=== PATIENT | male | born 1945 | race Caucasian/White ===

== ENCOUNTER 2016-08-11 11:15 | Inpatient (IN) ==
[2016-08-11] MEDS ORDERED: ACETAMINOPHEN 325 MG TABLET PO PRN (12:38)
[2016-08-11] MEDS ORDERED: ONDANSETRON 4 MG/2 ML VIAL IV PRN (12:38)
[2016-08-11] MEDS ORDERED: ZALEPLON 5 MG CAPSULE PO PRN (12:38)
[2016-08-11] MEDS ORDERED: DOCUSATE SODIUM 100 MG CAPSULE PO PRN (12:38)
[2016-08-11] MEDS ORDERED: MAGNESIUM SULF RIDER 4 GM in PREMIX 1 EACH IV PRN (12:41)
[2016-08-11] MEDS ORDERED: MAGNESIUM SULF RIDER 2 GM in PREMIX 1 EACH IV PRN (12:41)
[2016-08-11] MEDS ORDERED: FLUTICASONE 50 MCG NASAL SPRAY 16 GM BOTTLE BOTH NARES PRN (12:42)
[2016-08-11 13:08] LABS: Basophils # 0.1 10*3/uL (0.0-0.2); Basophils % 0.7 % (0.0-0.8); Eosinophils # 0.1 10*3/uL (0.0-0.87); Eosinophils % 1.9 % (0.00-10.9); Hematocrit 40.4 VOL% (42.0-52.0); Hemoglobin 14.1 GM/DL (14.0-18.0); Immature Granulocytes % 0.4 %; Immature Granulocytes Absolute 0.03 #; Lymphocytes # 1.7 10*3/uL (1.4-4.0); Lymphocytes % 22.9 % (21.2-54.2); Mean Corpuscular HGB Conc 34.9 GM/DL (32-36); Mean Corpuscular Hemoglobin 31 PG (27-34); Mean Corpuscular Volume 88.8 FL (87-102); Mean Platelet Volume 10.2 FL (9.6-12.0); Monocytes # 0.3 10*3/uL (0.11-0.8); Monocytes % 4.5 % (1.7-12.7); Neutrophils # 5.3 10*3/uL (1.4-7.4); Neutrophils % 69.6 % (38.7-73.9); Platelet Count 261 T/CUMM (130-400); Red Blood Count 4.55 MC/CUMM (3.8-5.5); Red Cell Distribution Width 12.6 % (9.3-17.3); White Blood Count 7.6 T/CUMM (4-12)
[2016-08-11 13:20] LABS: INR 1.4; PT Patient Result 15.3 SECS
--- NOTE | 2016-08-11 13:28 | CT Report ---
CT head/brain wo con Indication: Unsteady gait, dizziness Comparison: None Technique: Multiple axial tomographic images of the brain were obtained without the use of intravenous contrast. Findings: Midline structures are nondisplaced. There is no evidence of acute intracranial hemorrhage or hydrocephalus. Patchy periventricular and subcortical hypoattenuation noted which is nonspecific but consistent with chronic microvascular ischemic change. Old bilateral lacunar infarcts. Mild global volume loss present. Atherosclerotic calcifications demonstrated. The visualized paranasal sinuses and bilateral mastoid air cells are essentially clear. IMPRESSION: No acute intracranial abnormality demonstrated. Probable chronic microvascular ischemic change and volume loss. Old lacunar infarcts in bilateral basal ganglia. The CT exam was performed using one or more of the following dose reduction techniques: Automated exposure control, adjustment of the mA and/or kV according to patient size, or use of iterative reconstruction technique. PROCEDURE INTERPRETED AT [facility] DEPARTMENT OF RADIOLOGY Final Report Signed by: Dr Taqueria Stock
[2016-08-11 13:42] LABS: Albumin 3.6 G/DL (3.4-5.0); Osmolality,Calculated 280.4 MOS/KG (273-304); Potassium 4.2 MMOL/L (3.5-5.1); Total Protein 5.8 G/DL (6.4-8.3)
--- NOTE | 2016-08-11 13:42 | XRay Report ---
XR chest 2V Indication: SOB Comparison: Chest x-ray dated April 05, 2016 Technique: Frontal and lateral views of the chest. Findings: The cardiomediastinal silhouette is stable in configuration. Chronic change of the lungs without focal consolidation, pleural effusion, or pneumothorax. Stable scarlike opacities within the right lung apex and left lung base. Visualized osseous and surrounding soft tissue structures appear grossly unchanged. IMPRESSION: Stable chest x-ray without acute cardiopulmonary process demonstrated. PROCEDURE INTERPRETED AT [facility] DEPARTMENT OF RADIOLOGY Final Report Signed by: Dr Taqueria Stock
[2016-08-11 13:44] LABS: Troponin I Only 0.017 NG/ML (0.00-0.045)
[2016-08-11] MEDS: PANTOPRAZOLE 40 MG TABLET PO SCH (14:09)
[2016-08-11] MEDS: SODIUM CHLORIDE 0.45% 1,000 ML IV SCH ×2 (14:09→22:13)
[2016-08-11] MEDS: ALBUTEROL/IPRATROPIUM 3 ML NEB RESP TX SCH ×2 (14:26→19:27)
[2016-08-11 16:00] LABS: Apearance,Urine CLEAR (Clear); Bilirubin,Urine Negative (Negative); Blood, Urine Negative (Negative); Glucose,Urine (UA) Negative (Negative); Ketones,Urine Negative (Negative); Mucus,Urine Occasional /LPF (Occasional); Nitrite,Urine Negative (Negative); Protein,Urine Negative; Urine Color Yellow (Yellow); Urine Specific Gravity 1.004 (1.001-1.035); Urine Urobilinogen < 2.0 EU/DL (0.2-1.0); WBC,Urine <1 /HPF (0-6)
[2016-08-11] MEDS ORDERED: MONTELUKAST 10 MG TABLET PO SCH (21:00)
[2016-08-11 21:35] LABS: Troponin I Only 0.017 NG/ML (0.00-0.045)
--- NOTE | 2016-08-12 04:45 | EKG Report ---
Stationary ECG Study [facility] Test Date: 08/11/2016 12:55:45 PM Pat Name: JAY JAY MCKNIGHT Department: Room: 268 Gender: M Public Affairs Specialist: RUY : 1945 Requested by: Catia Bravo Order Number: [id number] Reading MD: NUZHAT ESCOBAR Intervals [place] Rate: 80 P: 999 MN: 0 QRS: 96 QRSD: 108 T: 64 QT: 396 QTc: 431 Interpretive Statements ATRIAL FIBRILLATION WITH ABERRANT CONDUCTION OR VENTRICULAR PREMATURE COMPLEXES BORDERLINE RIGHT AXIS DEVIATION MODERATE ST DEPRESSION INTERPRETATION BASED ON A DEFAULT AGE OF 40 YEARS Electronically Signed On 08-11-16 17:11:03 CDT by NUZHAT ESCOBAR [email or web address]
[2016-08-12] MEDS: ALBUTEROL/IPRATROPIUM 3 ML NEB RESP TX SCH ×3 (04:53→12:58)
[2016-08-12] MEDS: SODIUM CHLORIDE 0.45% 1,000 ML IV SCH (05:05)
[2016-08-12 05:29] LABS: Basophils # 0.1 10*3/uL (0.0-0.2); Basophils % 0.7 % (0.0-0.8); Eosinophils # 0.2 10*3/uL (0.0-0.87); Eosinophils % 2.7 % (0.00-10.9); Hemoglobin 14.1 GM/DL (14.0-18.0); Immature Granulocytes % 0.3 %; Immature Granulocytes Absolute 0.03 #; Lymphocytes # 2.7 10*3/uL (1.4-4.0); Lymphocytes % 30.9 % (21.2-54.2); Mean Corpuscular HGB Conc 35.3 GM/DL (32-36); Mean Corpuscular Hemoglobin 31 PG (27-34); Mean Corpuscular Volume 87.3 FL (87-102); Mean Platelet Volume 10.1 FL (9.6-12.0); Monocytes # 0.6 10*3/uL (0.11-0.8); Monocytes % 6.9 % (1.7-12.7); Neutrophils # 5.1 10*3/uL (1.4-7.4); Neutrophils % 58.5 % (38.7-73.9); Platelet Count 277 T/CUMM (130-400); Red Blood Count 4.58 MC/CUMM (3.8-5.5); Red Cell Distribution Width 12.6 % (9.3-17.3); White Blood Count 8.7 T/CUMM (4-12)
[2016-08-12 05:38] LABS: INR 1.5; PT Patient Result 15.7 SECS
[2016-08-12 06:09] LABS: Albumin 3.7 G/DL (3.4-5.0); Bilirubin,Total 1.5 MG/DL (0.2-1.0); Calcium 8.8 MG/DL (8.5-10.1); Osmolality,Calculated 276.4 MOS/KG (273-304); Potassium 4.1 MMOL/L (3.5-5.1); Risk Ratio 4.73; Total Protein 5.8 G/DL (6.4-8.3); VLDL CHOLESTEROL 38.6 MG/DL
[2016-08-12 06:23] LABS: Troponin I Only 0.024 NG/ML (0.00-0.045)
[2016-08-12] MEDS ORDERED: POTASSIUM PO SCH (09:00)
[2016-08-12] MEDS ORDERED: DIGOXIN 0.125 MG TABLET PO SCH (09:00)
[2016-08-12] MEDS ORDERED: ASCORBIC ACID 500 MG TABLET PO SCH (09:00)
[2016-08-12] MEDS ORDERED: SPIRONOLACTONE 25 MG TABLET PO SCH (09:00)
[2016-08-12] MEDS ORDERED: MAGNESIUM CHLORIDE 64 MG TABLET PO SCH (09:00)
[2016-08-12] MEDS ORDERED: CHOLECALCIFEROL 1,000 UNIT TABLET PO SCH (09:00)
[2016-08-12] MEDS ORDERED: ASPIRIN EC 81 MG TABLET PO SCH (09:00)
[2016-08-12] MEDS: PANTOPRAZOLE 40 MG TABLET PO SCH (09:31)
[2016-08-12] MEDS ORDERED: ENOXAPARIN 100 MG/ML SYRINGE SUBCUT SCH (11:30)
--- NOTE | 2016-08-12 14:15 | Discharge Summary ---
Hospital Course - Hospital Course Hospital Course: DIRECTOR OF EVENT MANAGEMENT: DR. FRAGOSO Mr. Dyer, 70-year-old male routinely followed by Dr. Fragoso. Patient was directly admitted from clinic August 11, 2016 for dizziness, shortness of breath, weakness. He was found to be hypotensive and orthostatic. Medications were adjusted accordingly after he was hydrated. Due to recent unsteady gait, patient underwent CT of head which revealed no significant abnormality. Theophylline level was checked due to his "anxious feeling" and shaking hands. Theophylline level was within normal limits. Patient's INR was subtherapeutic at 1.6 however he has not been taking anticoagulation as previously instructed. We discussed the possibility of changing him from Coumadin to a nontraditional anticoagulant however, patient prefers Coumadin due to cost. He reports he will be more compliant with his follow-up as well as monitoring of his INR. Of note, patient has lost approximately 55 pounds over the last 6 months to 1 year. He tells me he has intentionally dieted and exercised to lose his weight. This may be part of the culprit in his hypotension and orthostasis. Overnight, patient was hydrated and feels markedly better this morning. He would like to be discharged home today and I think this is reasonable. I have discussed with Dr. Torres. Dr. Torres seen patient, examined him and is agreeable patient is ready for discharge. Patient already has an appointment to see Dr. Fragoso Tuesday, August 16, 2016. At that appointment, will have him get INR checked. Below are his discharge medications. Ascorbic acid 1000 mg orally daily Aspirin 81 mg orally daily Vitamin C 1000 mg 1 p.o. daily Vitamin D3 1000 units 1 p.o. twice daily Digoxin 0.25 mill grams orally daily Fluticasone 50 mcg 1 spray both nares daily Magnesium chloride 64 mg -2 tablets once a day Coumadin 5 mg, take one half tablet orally each evening (this is the same dose he was taking before however he was not taking it as prescribed) Potassium gluconate 91 mg -3 tablets once a day Singulair 10 mg 1 p.o. daily Theophylline ER 300 mg 1 p.o. every 12 hours Ventolin HFA 90 mcg aerosol inhaler, inhale 2 puffs by mouth every 6 hours Loratadine 10 mg 1 p.o. daily as needed Cartia XT 240 mg's orally each evening, starting Saturday, August 13, 2016. In addition to the Cartia XT 240 mg each evening, patient was taking Cartia XT 300 mg orally each morning. He will not resume the Cartia 300 mg at this time but we will be evaluated next week by Dr. Fragoso. Patient will NOT resume Spironolactone, Micardis - Time spent with patient Time with patient DS: Greater than 30 minutes Diagnosis - Discharge Diagnosis (1) Unsteady gait Status: Resolved (2) Dizziness Status: Resolved (3) Near syncope Status: Resolved (4) Volume depletion Status: Resolved (5) Orthostatic hypotension Status: Resolved (6) Atrial fibrillation Status: Chronic (7) High risk medication use Status: Chronic (8) COPD (chronic obstructive pulmonary disease) Status: Chronic Specialty Discharge - Follow Up or Referrals Follow up with: Jarod Fragoso MD [Physician] - (Tuesday, August 16, 2016 - INR. SHould already have a clinic appointment. Please verify and have him keep that appointment as well as get INR Tuesday. Thanks) Discharge Plan - Discharge Data Disposition: Disch To Home/Self Care Condition at Discharge: Stable Discharge Diet: heart healthy Activity: resume usual activities as tolerated Hygiene: no restrictions Weight Bearing at Discharge: full weight bearing Driving: no restrictions Contact your physician if you experience:: fever over 101, Difficulty voiding, Redness or swelling, Nausea/Vomiting, Shortness of breath, Bleeding, pain uncontrolled by pain medications - Discharge Medications Continue Fluticasone 50 Mcg Nasal Rogers [Flonase Nasal Rogers] 2 spray BOTH NARES DAILY PRN PRN Reason: Allergy Symptoms Theophylline ER Tab 300 mg PO BID Digoxin 125 mcg PO DAILY Warfarin [Coumadin] 5 mg PO DIRECTED Montelukast Tab [Singulair Tab] 10 mg PO BEDTIME Ascorbic Acid/Ascorbate Sodium [Vit C-Coco Hips 500 mg Chew Tb] 2 tablet PO DAILY Cholecalciferol (Vitamin D3) [Vitamin D3] 1,000 unit PO DAILY Magnesium Chloride [Slow Mag] 64 mg PO DAILY dilTIAZem HCl [Cartia XT] 240 mg PO BEDTIME Potassium 3 tablet PO DAILY Aspirin EC Tab 81 mg PO DAILY Albuterol/Ipratropium Neb [Duoneb] 3 ml INH Q6HR Discontinued Spironolactone 25 mg PO DAILY dilTIAZem HCl [Cartia XT] 300 mg PO DAILY - Follow Up or Referral Follow Up: Jarod Fragoso MD [Physician] - (Tuesday, August 16, 2016 - INR. SHould already have a clinic appointment. Please verify and have him keep that appointment as well as get INR Tuesday. Thanks) - Forms/Instructions Exam - Constitutional Vitals: Period Temp Pulse Resp BP Sys/Watts Pulse Ox Last 24 Hr 97.7 F-99.3 F 62-99 18-20 75-115/52-76 95-99 Exam: General: [Appears well with no apparent distress.] [Pleasant and cooperative. ] [Appears comfortable.] HEENT: [PERRL, normocephalic, atraumatic. Mucous membranes moist. No jaundice noted. Conjunctiva moist and clear, sclerae anicteric] Neck: No JVD/HJR, no thyromegaly or lymphadenopathy noted. No carotid bruit appreciated Cardiac: [Irregularly irregular rhythm, controlled rate.] [No obvious murmur rub or gallop.] Lungs: [Clear to auscultation without accessory muscle use to assist the respiratory pattern.] Not requiring oxygen Abdomen: Soft, bowel sounds normoactive. Nontender and nondistended. No abdominal bruit or thrill noted. No masses noted. Musculoskeletal: No fluid collection. Decreased range of motion is noted. Extremities: No clubbing, cyanosis noted. [ No edema noted.] Upper extremity pulses 2+. Lower extremity pulses 2+. Capillary refill less than 3 seconds. Skin: No unusual lesions or rashes. No skin breakdown appreciated. Neuro: Awake, alert and oriented 3. Moves all extremities well without hemiparesis or paralysis. No essential tremor is appreciated. Discharge Results Procedures and tests throughout hospitalization: Pending Orders 08/13/16 04:00 Comp Blood Count Auto Diff IN AM Comprehensive Metabolic Panel IN AM Labs on day of discharge: Labs from last 24 hours 08/12/16 08/12/16 08/12/16 05:21 05:21 05:21 WBC RBC Hgb Hct MCV MCH MCHC RDW Plt Count MPV Neut % (Auto) Lymph % (Auto) [place] % (Auto) Eos % (Auto) Baso % (Auto) Neut # (Auto) Lymph # (Auto) [place] # (Auto) Eos # (Auto) Baso # (Auto) Immature Gran % Nucleated RBC % Immature Gran # Nucleated RBCs # INR PT Patient/Control Mix Sodium Potassium Chloride Carbon Dioxide Anion Gap BUN Creatinine GFR Calculation BUN/Creatinine Ratio Glucose Calculated Osmolality Calcium Total Bilirubin AST ALT Alkaline Phosphatase Total Creatine Kinase 176 D CK-MB (CK-2) 2.1 Troponin I 0.024 Total Protein Albumin Globulin Albumin/Globulin Ratio Triglycerides Cholesterol LDL Cholesterol VLDL Cholesterol HDL Cholesterol Heart Disease Risk Ratio Urine Color Urine Appearance Urine pH Ur Specific [place] Urine Protein Urine Glucose (UA) Urine Ketones Urine Blood Urine Nitrate Urine Bilirubin Urine Urobilinogen Urine Leukocytes Urine WBC Urine Mucus Ur Culture Indicated? Digoxin 1.70 Theophylline 13.1 08/12/16 08/12/16 08/12/16 05:21 05:21 05:21 WBC 8.7 RBC 4.58 Hgb 14.1 Hct 40.0 L MCV 87.3 MCH 31 MCHC 35.3 RDW 12.6 Plt Count 277 MPV 10.1 Neut % (Auto) 58.5 Lymph % (Auto) 30.9 [place] % (Auto) 6.9 Eos % (Auto) 2.7 Baso % (Auto) 0.7 Neut # (Auto) 5.1 Lymph # (Auto) 2.7 [place] # (Auto) 0.6 Eos # (Auto) 0.2 Baso # (Auto) 0.1 Immature Gran % 0.3 Nucleated RBC % 0.0 Immature Gran # 0.03 Nucleated RBCs # 0.00 INR 1.5 PT Patient/Control Mix 15.7 Sodium 140 Potassium 4.1 Chloride 107 Carbon Dioxide 22 Anion Gap 15.1 H BUN 8 Creatinine 1.30 GFR Calculation 71 BUN/Creatinine Ratio 6.00 Glucose 98 Calculated Osmolality 276.4 Calcium 8.8 Total Bilirubin 1.50 H AST 15 ALT 29 Alkaline Phosphatase 79 Total Creatine Kinase CK-MB (CK-2) Troponin I Total Protein 5.8 L Albumin 3.7 Globulin 2.1 L Albumin/Globulin Ratio 1.7 Triglycerides 193 H Cholesterol 189 LDL Cholesterol 123.0 VLDL Cholesterol 38.6 HDL Cholesterol 40 Heart Disease Risk Ratio 4.73 Urine Color Urine Appearance Urine pH Ur Specific [place] Urine Protein Urine Glucose (UA) Urine Ketones Urine Blood Urine Nitrate Urine Bilirubin Urine Urobilinogen Urine Leukocytes Urine WBC Urine Mucus Ur Culture Indicated? Digoxin Theophylline 08/11/16 08/11/16 21:06 15:43 WBC RBC Hgb Hct MCV MCH MCHC RDW Plt Count MPV Neut % (Auto) Lymph % (Auto) [place] % (Auto) Eos % (Auto) Baso % (Auto) Neut # (Auto) Lymph # (Auto) [place] # (Auto) Eos # (Auto) Baso # (Auto) Immature Gran % Nucleated RBC % Immature Gran # Nucleated RBCs # INR PT Patient/Control Mix Sodium Potassium Chloride Carbon Dioxide Anion Gap BUN Creatinine GFR Calculation BUN/Creatinine Ratio Glucose Calculated Osmolality Calcium Total Bilirubin AST ALT Alkaline Phosphatase Total Creatine Kinase 144 CK-MB (CK-2) 1.8 Troponin I 0.017 Total Protein Albumin Globulin Albumin/Globulin Ratio Triglycerides Cholesterol LDL Cholesterol VLDL Cholesterol HDL Cholesterol Heart Disease Risk Ratio Urine Color Yellow Urine Appearance Clear Urine pH 6.0 Ur Specific [place] 1.004 Urine Protein Negative Urine Glucose (UA) Negative Urine Ketones Negative Urine Blood Negative Urine Nitrate Negative Urine Bilirubin Negative Urine Urobilinogen < 2.0 H Urine Leukocytes Negative Urine WBC <1 Urine Mucus Occasional Ur Culture Indicated? Not indicated Digoxin Theophylline - Imaging and Cardiology Procedure: Chest x-ray: report reviewed by me, CT: report reviewed by me DS: Provider Date of admission: 08/12/16 10:37 Primary care physician: Christofer Keller MD Attending physician on admission: Jarod Fragoso MD Discharging clinician: Catia Sheppard NP Expected date of discharge: 08/12/16
--- NOTE | 2016-08-12 15:55 | Ultrasound Report ---
History is bilateral leg pain Bilateral lower extremity venous Doppler performed with grayscale, spectral Doppler, and color flow analysis performed and interpreted. No evidence of echogenic, noncompressible thrombus seen in either common femoral, superficial femoral, popliteal, or saphenous veins Impression: No evidence of DVT seen in either lower extremity. PROCEDURE INTERPRETED AT [facility] DEPARTMENT OF RADIOLOGY Final Report Signed by: Dr. Helene Carter
[2016-08-12 16:42] VITALS: BP 111/61
== END 2016-08-12 17:01 | disposition home or self-care (01) | DRG 312 ==
LOC: N.TELES
PROVIDERS: ADMIT Internal Medicine Cardiovascular Disease; ATTEND Internal Medicine Cardiovascular Disease

== ENCOUNTER 2018-06-12 12:16 | Inpatient (IN) ==
[2018-06-12 13:50] LABS: Basophils # 0.1 10*3/uL (0.0-0.2); Basophils % 0.3 % (0.0-0.8); Hematocrit 48.6 VOL% (42.0-52.0); Hemoglobin 16.2 GM/DL (14.0-18.0); Immature Granulocytes % 2.4 %; Immature Granulocytes Absolute 0.39 #; Mean Corpuscular HGB Conc 33.3 GM/DL (32-36); Mean Corpuscular Hemoglobin 30 PG (27-34); Mean Corpuscular Volume 88.7 FL (87-102); Mean Platelet Volume 9.3 FL (9.6-12.0); Monocytes # 0.7 10*3/uL (0.11-0.8); Monocytes % 4.3 % (1.7-12.7); Neutrophils # 14.3 10*3/uL (1.4-7.4); Platelet Count 340 T/CUMM (130-400); Red Blood Count 5.48 MC/CUMM (3.8-5.5); White Blood Count 16.5 T/CUMM (4-12)
[2018-06-12 14:06] LABS: Albumin 3.2 G/DL (3.4-5.0); Bilirubin,Total 0.6 MG/DL (0.2-1.0); Calcium 8.9 MG/DL (8.5-10.1); Osmolality,Calculated 278.8 MOS/KG (273-304); Potassium 4.1 MMOL/L (3.5-5.1); Total Protein 6.8 G/DL (6.4-8.3)
[2018-06-12] MEDS ORDERED: ONDANSETRON 4 MG/2 ML VIAL IV STA (16:49)
[2018-06-12] MEDS ORDERED: methylPREDNISolone SOD SUC 125 MG/2 ML VIAL IV STA (16:49)
[2018-06-12] MEDS ORDERED: ALBUTEROL/IPRATROPIUM 3 ML NEB RESP TX STA (16:49)
[2018-06-12 17:09] LABS: INR 2.1
[2018-06-12] MEDS ORDERED: ONDANSETRON 4 MG/2 ML VIAL IV PRN (19:49)
[2018-06-12] MEDS ORDERED: GLUCAGON 1 MG VIAL IM PRN ×2 (19:49)
[2018-06-12] MEDS ORDERED: DEXTROSE 50% 25 GM/50 ML VIAL IV PRN (19:49)
[2018-06-12] MEDS ORDERED: ACETAMINOPHEN 325 MG TABLET PO PRN (19:49)
[2018-06-12] MEDS ORDERED: DEXTROSE 50% 25 GM/50 ML SYRINGE IV PRN (19:49)
[2018-06-12] MEDS ORDERED: FLUTICASONE 50 MCG NASAL SPRAY 16 GM BOTTLE BOTH NARES PRN (20:04)
[2018-06-12 20:58] LABS: Troponin I < 0.015 NG/ML (0.00-0.045)
[2018-06-12] MEDS ORDERED: LEVOFLOXACIN INJ 750 MG in PREMIX 1 EACH IV SCH (21:00)
[2018-06-12] MEDS: SODIUM CHLOR 0.45% KCL 20 MEQ 20 MEQ/1,000 ML BAG IV SCH (21:17)
[2018-06-12] MEDS: methylPREDNISolone SOD SUC 40 MG/1 ML VIAL IV SCH (21:18)
[2018-06-12] MEDS: THEOPHYLLINE ER 300 MG TABLET PO SCH (21:21)
[2018-06-12] MEDS: DILTIAZEM CD 240 MG CAPSULE PO SCH (21:21)
[2018-06-12] MEDS: INSULIN LISPRO 100 UNIT/ML SUBCUT SCH (21:21)
[2018-06-12 23:37] LABS: Troponin I < 0.015 NG/ML (0.00-0.045)
[2018-06-13] MEDS: ALBUTEROL/IPRATROPIUM 3 ML NEB RESP TX SCH ×4 (00:28→19:38)
[2018-06-13 02:35] LABS: Basophils % 0.2 % (0.0-0.8); Hematocrit 42.2 VOL% (42.0-52.0); Hemoglobin 13.9 GM/DL (14.0-18.0); Immature Granulocytes % 1.8 %; Immature Granulocytes Absolute 0.22 #; Lymphocytes # 0.6 10*3/uL (1.4-4.0); Lymphocytes % 4.4 % (21.2-54.2); Mean Corpuscular HGB Conc 32.9 GM/DL (32-36); Mean Corpuscular Hemoglobin 30 PG (27-34); Mean Corpuscular Volume 89.6 FL (87-102); Mean Platelet Volume 9.4 FL (9.6-12.0); Monocytes # 0.1 10*3/uL (0.11-0.8); Neutrophils # 11.5 10*3/uL (1.4-7.4); Neutrophils % 92.6 % (38.7-73.9); Platelet Count 315 T/CUMM (130-400); Red Blood Count 4.71 MC/CUMM (3.8-5.5); Red Cell Distribution Width 13.8 % (9.3-17.3); White Blood Count 12.4 T/CUMM (4-12)
[2018-06-13 02:53] LABS: Calcium 8.5 MG/DL (8.5-10.1); Osmolality,Calculated 286.2 MOS/KG (273-304); Potassium 4.1 MMOL/L (3.5-5.1); Thyroid Stimulating Hormone 0.171 uIU/ml (0.358-3.74)
[2018-06-13 03:01] LABS: Troponin I < 0.015 NG/ML (0.00-0.045)
[2018-06-13] MEDS: methylPREDNISolone SOD SUC 40 MG/1 ML VIAL IV SCH ×2 (03:56→12:18)
[2018-06-13 04:22] LABS: Lymphocytes 3 % (20-55); Segmented Neutrophils 97 % (50-85); Total Cells Counted 100
[2018-06-13 04:23] LABS: Platelet Estimate Normal
[2018-06-13] MEDS: SODIUM CHLOR 0.45% KCL 20 MEQ 20 MEQ/1,000 ML BAG IV SCH ×3 (08:41→23:55)
[2018-06-13] MEDS: INSULIN LISPRO 100 UNIT/ML SUBCUT SCH ×4 (08:42→20:58)
[2018-06-13] MEDS: POTASSIUM CHLORIDE 20 MEQ TABLET PO SCH (08:42)
[2018-06-13] MEDS: CHOLECALCIFEROL 1,000 UNIT TABLET PO SCH (08:42)
[2018-06-13] MEDS: ASCORBIC ACID 500 MG TABLET PO SCH (08:42)
[2018-06-13] MEDS: DILTIAZEM CD 240 MG CAPSULE PO SCH ×2 (08:43→20:07)
[2018-06-13] MEDS: THEOPHYLLINE ER 300 MG TABLET PO SCH ×2 (08:43→20:08)
[2018-06-13] MEDS: PANTOPRAZOLE 40 MG TABLET PO SCH (08:43)
[2018-06-13] MEDS: MONTELUKAST 10 MG TABLET PO SCH (08:43)
[2018-06-13] MEDS: MULTIVITAMIN (CENTRUM) TABLET PO SCH (08:43)
[2018-06-13] MEDS: SPIRONOLACTONE 25 MG TABLET PO SCH (08:44)
[2018-06-13] MEDS: ASPIRIN EC 81 MG TABLET PO SCH (08:44)
[2018-06-13] MEDS: FUROSEMIDE 40 MG TABLET PO SCH (08:44)
[2018-06-13] MEDS ORDERED: LOSARTAN 25 MG TABLET PO SCH ×2 (09:00→21:00)
[2018-06-13] MEDS ORDERED: FLUTICASONE FUROATE INH SCH (09:00)
[2018-06-13] MEDS ORDERED: Alendronate Sodium 35 MG PO SCH (09:00)
[2018-06-13] MEDS ORDERED: DIGOXIN 0.25 MG TABLET PO SCH (13:00)
[2018-06-13 15:47] LABS: Apearance,Urine CLEAR (Clear); Bilirubin,Urine Negative (Negative); Blood, Urine Negative (Negative); Glucose,Urine (UA) >=500 mg/dL (Negative); Hyaline Casts,Urine 3 /LPF (0-3); Ketones,Urine Negative (Negative); Mucus,Urine Occasional /LPF (Occasional); Nitrite,Urine Negative (Negative); Protein,Urine Negative; RBC,Urine 1 /HPF (0-4); Urine Color Straw (Yellow); Urine Specific Gravity 1.009 (1.001-1.035); Urine Urobilinogen < 2.0 EU/DL (0.2-1.0)
[2018-06-13] MEDS ORDERED: WARFARIN 2.5 MG TABLET PO SCH (18:00)
[2018-06-13] MEDS: FLUTICASONE/SALMETEROL 100-50 DISKUS 14 DOSE INH SCH (20:08)
[2018-06-14] MEDS: ALBUTEROL/IPRATROPIUM 3 ML NEB RESP TX SCH ×2 (00:45→07:06)
[2018-06-14 04:25] LABS: Calcium 8.1 MG/DL (8.5-10.1); Osmolality,Calculated 284.7 MOS/KG (273-304); Potassium 4.9 MMOL/L (3.5-5.1)
[2018-06-14 06:12] LABS: INR 3.3
[2018-06-14] MEDS: SODIUM CHLOR 0.45% KCL 20 MEQ 20 MEQ/1,000 ML BAG IV SCH (08:00)
[2018-06-14] MEDS: INSULIN LISPRO 100 UNIT/ML SUBCUT SCH ×2 (08:01→11:55)
[2018-06-14] MEDS ORDERED: predniSONE 20 MG TABLET PO SCH (09:00)
[2018-06-14] MEDS ORDERED: LEVOFLOXACIN 750 MG TABLET PO SCH (09:00)
[2018-06-14] MEDS: CHOLECALCIFEROL 1,000 UNIT TABLET PO SCH (09:07)
[2018-06-14] MEDS: ASCORBIC ACID 500 MG TABLET PO SCH (09:07)
[2018-06-14] MEDS: MULTIVITAMIN (CENTRUM) TABLET PO SCH (09:07)
[2018-06-14] MEDS: POTASSIUM CHLORIDE 20 MEQ TABLET PO SCH (09:07)
[2018-06-14] MEDS: THEOPHYLLINE ER 300 MG TABLET PO SCH (09:07)
[2018-06-14] MEDS: MONTELUKAST 10 MG TABLET PO SCH (09:07)
[2018-06-14] MEDS: SPIRONOLACTONE 25 MG TABLET PO SCH (09:08)
[2018-06-14] MEDS: PANTOPRAZOLE 40 MG TABLET PO SCH (09:08)
[2018-06-14] MEDS: ASPIRIN EC 81 MG TABLET PO SCH (09:08)
[2018-06-14] MEDS: FUROSEMIDE 40 MG TABLET PO SCH (09:08)
[2018-06-14] MEDS: DILTIAZEM CD 240 MG CAPSULE PO SCH (09:09)
[2018-06-14] MEDS: FLUTICASONE/SALMETEROL 100-50 DISKUS 14 DOSE INH SCH (09:42)
[2018-06-14 11:55] VITALS: BP 123/73
== END 2018-06-14 12:50 | disposition home or self-care (01) | DRG 191 ==
LOC: N.ED 12:16 → SUATTDRO 18:52 → N.EDINP 18:52 → N.TELES 19:47
PROVIDERS: ADMIT Internal Medicine; ATTEND Internal Medicine

== ENCOUNTER 2019-12-22 14:08 | Inpatient (IN) ==
[2019-12-22 15:47] LABS: Bacteria,Urine Occasional /HPF (Few); Bilirubin,Urine Negative (Negative); Blood, Urine Small mg/dL (Negative); Glucose,Urine (UA) Negative (Negative); Hyaline Casts,Urine 1 /LPF (0-3); Ketones,Urine Negative (Negative); Mucus,Urine Occasional /LPF (Occasional); Nitrite,Urine Negative (Negative); Protein,Urine Negative; RBC,Urine 2 /HPF (0-4); Squamous Epithelial Cell,Urine Occasional /HPF (0-10); Urine Appearance CLEAR (Clear); Urine Color Yellow (Yellow); Urine Specific Gravity 1.011 (1.001-1.035); Urine Urobilinogen < 2.0 EU/DL (0.2-1.0); WBC,Urine 33 /HPF (0-6)
[2019-12-22 16:31] LABS: Basophils # 0.1 10*3/uL (0.0-0.2); Basophils % 0.5 % (0.0-0.8); Hematocrit 45.8 VOL% (42.0-52.0); Hemoglobin 15.8 GM/DL (14.0-18.0); Immature Granulocytes % 0.6 %; Immature Granulocytes Absolute 0.14 #; Lymphocytes # 1.2 10*3/uL (1.4-4.0); Lymphocytes % 5.5 % (21.2-54.2); Mean Corpuscular HGB Conc 34.5 GM/DL (32-36); Mean Corpuscular Volume 85.6 FL (87-102); Mean Platelet Volume 10.1 FL (9.6-12.0); Monocytes % 5.6 % (1.7-12.7); Neutrophils % 87.8 % (38.7-73.9); Platelet Count 217 T/CUMM (130-400); Red Blood Count 5.35 MC/CUMM (3.8-5.5); Red Cell Distribution Width 13.2 % (9.3-17.3); White Blood Count 21.8 T/CUMM (4-12)
[2019-12-22 16:38] LABS: Albumin 3.9 G/DL (3.4-5.0); Bilirubin,Total 1.9 MG/DL (0.2-1.0); Calcium 8.9 MG/DL (8.5-10.1); Osmolality,Calculated 263.5 MOS/KG (273-304)
[2019-12-22 16:51] LABS: Band Neutrophils 1 % (0-10); Lymphocytes 7 % (20-55); Platelet Estimate Normal; Polychromasia Slight; Reactive Lymphocytes 1+; Segmented Neutrophils 88 % (50-85); Total Cells Counted 100
[2019-12-22] MEDS ORDERED: cefTRIAXone 1,000 MG in SODIUM CHLORIDE 0.9% 100 ML IV STA (18:02)
[2019-12-22] MEDS ORDERED: SODIUM CHLORIDE 0.9% 1,000 ML IV STA (18:02)
[2019-12-22] MEDS ORDERED: ALBUTEROL/IPRATROPIUM 3 ML NEB RESP TX PRN (18:03)
[2019-12-22] MEDS ORDERED: ZALEPLON 5 MG CAPSULE PO PRN (18:03)
[2019-12-22] MEDS ORDERED: diphenhydrAMINE CAP 25 MG CAPSULE PO PRN (18:03)
[2019-12-22] MEDS ORDERED: ACETAMINOPHEN 325 MG TABLET PO PRN (18:03)
[2019-12-22] MEDS ORDERED: NICOTINE 21 MG/24 HR PATCH TRANSDERM PRN (18:03)
[2019-12-22] MEDS ORDERED: guaiFENesin/DM ER 600-30 MG TABLET PO PRN (18:03)
[2019-12-22] MEDS ORDERED: DOCUSATE SODIUM 100 MG CAPSULE PO PRN (18:03)
[2019-12-22] MEDS ORDERED: DEXTROSE 50% 25 GM/50 ML VIAL IV PRN ×2 (18:03)
[2019-12-22] MEDS ORDERED: hydrALAZINE 20 MG/1 ML VIAL IV PRN (18:03)
[2019-12-22] MEDS ORDERED: GLUCAGON 1 MG VIAL IM PRN ×2 (18:03)
[2019-12-22] MEDS ORDERED: ONDANSETRON 4 MG/2 ML VIAL IV PRN (18:03)
[2019-12-22] MEDS ORDERED: cefTRIAXone 250 MG VIAL ONE (18:17)
[2019-12-22] MEDS: DILTIAZEM CD 240 MG CAPSULE PO SCH (21:37)
[2019-12-22] MEDS: INSULIN LISPRO 100 UNIT/ML SUBCUT SCH (21:37)
[2019-12-22] MEDS: SODIUM CHLORIDE 0.9% 1,000 ML IV SCH (21:45)
[2019-12-23 06:37] LABS: INR 1.9; PT Patient Result 19.8 SECS (9.8-11.9); Partial Thromboplastin Time 42.7 SECS (23.9-33.8)
[2019-12-23 06:39] LABS: Basophils # 0.1 10*3/uL (0.0-0.2); Basophils % 0.4 % (0.0-0.8); Eosinophils % 0.1 % (0.00-10.9); Hematocrit 40.9 VOL% (42.0-52.0); Immature Granulocytes % 0.8 %; Immature Granulocytes Absolute 0.12 #; Lymphocytes # 1.6 10*3/uL (1.4-4.0); Lymphocytes % 9.9 % (21.2-54.2); Mean Corpuscular HGB Conc 34.2 GM/DL (32-36); Mean Corpuscular Volume 86.5 FL (87-102); Mean Platelet Volume 10.4 FL (9.6-12.0); Monocytes % 6.1 % (1.7-12.7); Neutrophils % 82.7 % (38.7-73.9); Platelet Count 197 T/CUMM (130-400); Red Blood Count 4.73 MC/CUMM (3.8-5.5); Red Cell Distribution Width 12.9 % (9.3-17.3); White Blood Count 15.7 T/CUMM (4-12)
[2019-12-23 06:41] LABS: Osmolality,Calculated 269.1 MOS/KG (273-304)
[2019-12-23] MEDS: INSULIN LISPRO 100 UNIT/ML SUBCUT SCH ×4 (07:04→21:14)
[2019-12-23] MEDS: DILTIAZEM CD 240 MG CAPSULE PO SCH ×3 (09:30→21:12)
[2019-12-23] MEDS: ASCORBIC ACID 500 MG TABLET PO SCH (09:31)
[2019-12-23] MEDS: PANTOPRAZOLE 40 MG TABLET PO SCH (09:31)
[2019-12-23] MEDS: MULTIVITAMIN (CENTRUM) TABLET PO SCH (09:31)
[2019-12-23] MEDS: SODIUM CHLORIDE 0.9% 1,000 ML IV SCH ×2 (11:41→21:10)
[2019-12-23] MEDS: cefTRIAXone 1,000 MG in SYRINGE 1 EACH IV SCH (17:54)
[2019-12-23] MEDS ORDERED: WARFARIN 2.5 MG TABLET PO SCH (18:00)
[2019-12-24 06:17] LABS: Basophils % 0.5 % (0.0-0.8); Eosinophils % 0.3 % (0.00-10.9); Hematocrit 42.4 VOL% (42.0-52.0); Hemoglobin 14.4 GM/DL (14.0-18.0); Immature Granulocytes % 0.8 %; Immature Granulocytes Absolute 0.07 #; Lymphocytes # 1.9 10*3/uL (1.4-4.0); Lymphocytes % 21.5 % (21.2-54.2); Mean Corpuscular Volume 86.7 FL (87-102); Mean Platelet Volume 10.2 FL (9.6-12.0); Monocytes % 6.9 % (1.7-12.7); Platelet Count 179 T/CUMM (130-400); Red Blood Count 4.89 MC/CUMM (3.8-5.5); Red Cell Distribution Width 13.1 % (9.3-17.3); White Blood Count 8.8 T/CUMM (4-12)
[2019-12-24 06:41] LABS: Calcium 8.1 MG/DL (8.5-10.1); Osmolality,Calculated 274.5 MOS/KG (273-304)
[2019-12-24] MEDS: DILTIAZEM CD 240 MG CAPSULE PO SCH (08:31)
[2019-12-24] MEDS: MULTIVITAMIN (CENTRUM) TABLET PO SCH (08:31)
[2019-12-24] MEDS: ASCORBIC ACID 500 MG TABLET PO SCH (08:31)
[2019-12-24] MEDS: PANTOPRAZOLE 40 MG TABLET PO SCH (08:31)
[2019-12-24] MEDS: INSULIN LISPRO 100 UNIT/ML SUBCUT SCH ×4 (08:32→20:23)
[2019-12-24] MEDS: SODIUM CHLORIDE 0.9% 1,000 ML IV SCH ×2 (09:46→16:38)
[2019-12-24 12:25] LABS: INR 1.5; PT Patient Result 15.6 SECS (9.8-11.9)
[2019-12-24] MEDS: cefTRIAXone 1,000 MG in SYRINGE 1 EACH IV SCH (12:33)
[2019-12-24] MEDS ORDERED: CIPROFLOXACIN INJ 400 MG in PREMIX 1 EACH IV SCH (13:30)
[2019-12-24] MEDS: CIPROFLOXACIN INJ 400 MG in PREMIX 1 EACH IV SCH (14:41)
[2019-12-24] MEDS ORDERED: WARFARIN 1 MG TABLET PO SCH (18:00)
[2019-12-24] MEDS: DILTIAZEM CD 120 MG CAPSULE PO SCH (20:26)
[2019-12-25] MEDS: SODIUM CHLORIDE 0.9% 1,000 ML IV SCH ×2 (01:16→08:21)
[2019-12-25] MEDS: CIPROFLOXACIN INJ 400 MG in PREMIX 1 EACH IV SCH ×2 (02:34→13:32)
[2019-12-25 05:52] LABS: Basophils % 0.6 % (0.0-0.8); Eosinophils # 0.1 10*3/uL (0.0-0.87); Eosinophils % 0.9 % (0.00-10.9); Hematocrit 39.4 VOL% (42.0-52.0); Hemoglobin 13.4 GM/DL (14.0-18.0); Immature Granulocytes % 0.9 %; Immature Granulocytes Absolute 0.06 #; Lymphocytes # 1.7 10*3/uL (1.4-4.0); Lymphocytes % 26.3 % (21.2-54.2); Mean Corpuscular Volume 87.2 FL (87-102); Mean Platelet Volume 9.8 FL (9.6-12.0); Monocytes % 8.5 % (1.7-12.7); Neutrophils % 62.8 % (38.7-73.9); Platelet Count 196 T/CUMM (130-400); Red Blood Count 4.52 MC/CUMM (3.8-5.5); Red Cell Distribution Width 13.2 % (9.3-17.3); White Blood Count 6.5 T/CUMM (4-12)
[2019-12-25 05:53] LABS: INR 1.4; PT Patient Result 15.2 SECS (9.8-11.9)
[2019-12-25 06:03] LABS: Osmolality,Calculated 279.3 MOS/KG (273-304)
[2019-12-25] MEDS: INSULIN LISPRO 100 UNIT/ML SUBCUT SCH ×2 (07:43→11:25)
[2019-12-25] MEDS: DILTIAZEM CD 120 MG CAPSULE PO SCH (08:20)
[2019-12-25] MEDS: MULTIVITAMIN (CENTRUM) TABLET PO SCH (08:21)
[2019-12-25] MEDS: ASCORBIC ACID 500 MG TABLET PO SCH (08:21)
[2019-12-25] MEDS: PANTOPRAZOLE 40 MG TABLET PO SCH (08:21)
[2019-12-25 11:42] VITALS: BP 115/66
== END 2019-12-25 16:00 | disposition home or self-care (01) | DRG 872 ==
LOC: N.ED 14:08 → N.EDINP 14:08 → SUATTDRO 18:03 → N.5E 20:00 → SUATTDRO 12-24 14:26
PROVIDERS: ADMIT Emergency Medicine; ATTEND Internal Medicine

== ENCOUNTER 2021-03-02 10:37 | Observation (INO) ==
[2021-03-02] MEDS ORDERED: SODIUM CHLORIDE 0.9% 1,000 ML IV STA (13:00)
[2021-03-02] MEDS ORDERED: ONDANSETRON 4 MG/2 ML VIAL IV STA (13:00)
[2021-03-02 14:17] LABS: Albumin 3.2 G/DL (3.4-5.0); Bilirubin,Total 0.8 MG/DL (0.20-1.00); Calcium 9.2 MG/DL (8.5-10.1); Osmolality,Calculated 278.8 MOS/KG (273-304); Potassium 4.3 MMOL/L (3.5-5.1); Total Protein 5.7 G/DL (6.4-8.2)
[2021-03-02 14:21] LABS: Basophils # 0.1 10*3/uL (0.0-0.2); Basophils % 0.8 % (0.0-0.8); Eosinophils % 0.3 % (0.00-10.9); Hematocrit 37.1 VOL% (42.0-52.0); Hemoglobin 12.2 GM/DL (14.0-18.0); Immature Granulocytes % 1.4 %; Immature Granulocytes Absolute 0.21 #; Lymphocytes # 2.1 10*3/uL (1.4-4.0); Lymphocytes % 14.8 % (21.2-54.2); Mean Corpuscular HGB Conc 32.9 GM/DL (32-36); Mean Corpuscular Volume 90.7 FL (87-102); Mean Platelet Volume 10.7 FL (9.6-12.0); Monocytes % 5.6 % (1.7-12.7); Neutrophils % 77.1 % (38.7-73.9); Platelet Count 268 T/CUMM (130-400); Red Blood Count 4.09 MC/CUMM (3.8-5.5); Red Cell Distribution Width 13.1 % (9.3-17.3); White Blood Count 14.5 T/CUMM (4-12)
[2021-03-02 14:29] LABS: Partial Thromboplastin Time 28.7 SECS (23.8-32.1)
[2021-03-02] MEDS ORDERED: ONDANSETRON 4 MG/2 ML VIAL IV PRN (15:27)
[2021-03-02] MEDS ORDERED: guaiFENesin/DM ER 600-30 MG TABLET PO PRN (15:27)
[2021-03-02] MEDS ORDERED: DOCUSATE SODIUM 100 MG CAPSULE PO PRN (15:27)
[2021-03-02] MEDS ORDERED: DEXTROSE 50% 25 GM/50 ML SYRINGE IV PRN ×2 (15:27)
[2021-03-02] MEDS ORDERED: ZALEPLON 5 MG CAPSULE PO PRN (15:27)
[2021-03-02] MEDS ORDERED: NICOTINE 21 MG/24 HR PATCH TRANSDERM PRN (15:27)
[2021-03-02] MEDS ORDERED: diphenhydrAMINE CAP 25 MG CAPSULE PO PRN (15:27)
[2021-03-02] MEDS ORDERED: ACETAMINOPHEN 325 MG TABLET PO PRN (15:27)
[2021-03-02] MEDS ORDERED: GLUCAGON 1 MG VIAL IM PRN ×2 (15:27)
[2021-03-02] MEDS ORDERED: hydrALAZINE 20 MG/1 ML VIAL IV PRN (15:27)
[2021-03-02 15:38] LABS: PT Patient Result 21.7 SECS (10.5-12.0)
[2021-03-02] MEDS ORDERED: AZELASTINE NASAL 137 MCG/SPRAY 30 ML BOTTLE BOTH NARES PRN (15:45)
[2021-03-02] MEDS ORDERED: FLUTICASONE 50 MCG NASAL SPRAY 16 GM BOTTLE BOTH NARES PRN (15:45)
[2021-03-02] MEDS: ALBUTEROL/IPRATROPIUM 3 ML NEB RESP TX SCH (21:22)
[2021-03-02] MEDS: INSULIN LISPRO 100 UNIT/ML SUBCUT SCH (23:10)
[2021-03-03] MEDS: ALBUTEROL/IPRATROPIUM 3 ML NEB RESP TX SCH ×4 (00:37→19:56)
[2021-03-03 05:57] LABS: Basophils # 0.1 10*3/uL (0.0-0.2); Basophils % 0.8 % (0.0-0.8); Eosinophils # 0.1 10*3/uL (0.0-0.87); Eosinophils % 0.8 % (0.00-10.9); Hematocrit 29.5 VOL% (42.0-52.0); Hemoglobin 9.8 GM/DL (14.0-18.0); Immature Granulocytes % 0.8 %; Immature Granulocytes Absolute 0.08 #; Lymphocytes # 3.1 10*3/uL (1.4-4.0); Lymphocytes % 29.3 % (21.2-54.2); Mean Corpuscular HGB Conc 33.2 GM/DL (32-36); Mean Corpuscular Volume 89.9 FL (87-102); Mean Platelet Volume 10.3 FL (9.6-12.0); Monocytes % 5.1 % (1.7-12.7); Neutrophils % 63.2 % (38.7-73.9); Platelet Count 201 T/CUMM (130-400); Red Blood Count 3.28 MC/CUMM (3.8-5.5); Red Cell Distribution Width 13.2 % (9.3-17.3); White Blood Count 10.5 T/CUMM (4-12)
[2021-03-03 06:11] LABS: Calcium 8.4 MG/DL (8.5-10.1); Osmolality,Calculated 276.7 MOS/KG (273-304); Potassium 3.6 MMOL/L (3.5-5.1)
[2021-03-03] MEDS: INSULIN LISPRO 100 UNIT/ML SUBCUT SCH ×5 (07:50→23:53)
[2021-03-03] MEDS: PANTOPRAZOLE 40 MG TABLET PO SCH (08:43)
[2021-03-03] MEDS: SPIRONOLACTONE 50 MG TABLET PO SCH (08:43)
[2021-03-03] MEDS: CHOLECALCIFEROL 1,000 UNIT TABLET PO SCH (08:43)
[2021-03-03] MEDS: LOSARTAN 25 MG TABLET PO SCH (08:43)
[2021-03-03 09:41] LABS: INR 1.4; PT Patient Result 15.3 SECS (10.5-12.0)
[2021-03-03] MEDS ORDERED: DIGOXIN 0.25 MG TABLET PO SCH (13:00)
[2021-03-04] MEDS: ALBUTEROL/IPRATROPIUM 3 ML NEB RESP TX SCH ×2 (01:09→07:41)
[2021-03-04 04:44] LABS: Basophils % 0.5 % (0.0-0.8); Eosinophils # 0.1 10*3/uL (0.0-0.87); Eosinophils % 0.8 % (0.00-10.9); Hematocrit 27.8 VOL% (42.0-52.0); Hemoglobin 9.2 GM/DL (14.0-18.0); Immature Granulocytes % 1.6 %; Immature Granulocytes Absolute 0.12 #; Lymphocytes # 2.1 10*3/uL (1.4-4.0); Lymphocytes % 28.1 % (21.2-54.2); Mean Corpuscular HGB Conc 33.1 GM/DL (32-36); Mean Corpuscular Volume 91.4 FL (87-102); Mean Platelet Volume 10.3 FL (9.6-12.0); Monocytes % 6.5 % (1.7-12.7); Neutrophils % 62.5 % (38.7-73.9); Platelet Count 178 T/CUMM (130-400); Red Blood Count 3.04 MC/CUMM (3.8-5.5); Red Cell Distribution Width 13.2 % (9.3-17.3); White Blood Count 7.6 T/CUMM (4-12)
[2021-03-04 04:53] LABS: INR 1.2; PT Patient Result 13.6 SECS (10.5-12.0)
[2021-03-04 05:23] LABS: Calcium 8.3 MG/DL (8.5-10.1); Osmolality,Calculated 276.5 MOS/KG (273-304); Potassium 3.2 MMOL/L (3.5-5.1)
[2021-03-04] MEDS: INSULIN LISPRO 100 UNIT/ML SUBCUT SCH (08:07)
[2021-03-04 08:27] VITALS: BP 114/62
[2021-03-04] MEDS ORDERED: DILTIAZEM CD 240 MG CAPSULE PO SCH ×2 (09:00→09:20)
[2021-03-04] MEDS: CHOLECALCIFEROL 1,000 UNIT TABLET PO SCH (09:11)
[2021-03-04] MEDS ORDERED: POTASSIUM CHLORIDE 20 MEQ TABLET PO ONE (09:11)
[2021-03-04] MEDS: PANTOPRAZOLE 40 MG TABLET PO SCH (09:11)
[2021-03-04] MEDS: SPIRONOLACTONE 50 MG TABLET PO SCH (09:12)
[2021-03-04] MEDS: LOSARTAN 25 MG TABLET PO SCH (09:13)
== END 2021-03-04 10:50 | disposition home or self-care (01) ==
LOC: N.ED 10:37 → N.EDINP 10:37 → SUATTDRO 15:27 → N.3E 23:10
PROVIDERS: ADMIT Internal Medicine; ATTEND Internal Medicine